=== PATIENT | male | born 1995 | race Caucasian/White ===

== ENCOUNTER 2021-10-07 17:39 | Emergency (ER) | payer OTHER ==
[2021-10-07 18:38] LABS: BASOPHIL 0.3 % (0-2); EOSINOPHIL 0.4 % (0-5); HCT 50.5 % (42.0-52.0); HGB 17.6 g/dl (13.2-18.0); LYMPHOCYTE 1.9 % (15-48); MCH 31.6 pg (25.0-31.0); MCHC 34.9 g/dL (32.0-36.0); MCV 90.7 fL (78.0-100.0); MONOCYTE 4.1 % (0-12); MPV 9.8 fL (6.0-9.5); NRBC 0; PLT 242 K/uL (150-400); RBC 5.57 M/uL (4.70-6.00); RDW 12.7 % (11.5-14.0)
[2021-10-07 18:39] LABS: BILIRUBIN 1+ mg/dL (NEGATIVE); BLOOD NEGATIVE Ery/uL (NEGATIVE); CLARITY CLEAR (CLEAR); COLOR YELLOW (YELLOW); GLUCOSE (U) NORMAL (NORMAL); LEUKOCYTES TRACE Leu/uL (NEGATIVE); NITRITE NEGATIVE (NEGATIVE); PROTEIN TRACE (LOW) mg/dL (NEGATIVE); SPECIFIC GRAVITY 1.015 (1.001-1.030); UROBILINOGEN 0.2 mg/dL (0.2-1.0)
[2021-10-07 18:42] LABS: NEUTROPHIL 92.8 % (41-80)
[2021-10-07 18:47] LABS: AMORPHOUS URATES CRYSTALS TRACE; MUCOUS LARGE; SQUAMOUS EPITHELIAL CELLS RARE; URINARY WBC RARE
[2021-10-07 18:55] LABS: ALBUMIN 5.5 g/dL (3.4-5.0); BILIRUBIN - TOTAL 1.5 mg/dL (0.2-1.0); BUN/CREAT RATIO (CALC) 22.4 RATIO; CREATININE 0.85 mg/dL (0.67-1.17); GLOBULIN (CALCULATION) 3.4 g/dL; POTASSIUM 4.4 mmol/L (3.5-5.1); TOTAL PROTEIN 8.9 g/dL (6.4-8.2)
[2021-10-07] MEDS ORDERED: ONDANSETRON ODT4 MG PO (21:03)
[2021-10-07] MEDS ORDERED: BENTYL10 MG PO (21:03)
== END 2021-10-07 21:25 | disposition home or self-care (01) ==
LOC: FER 17:39
PROVIDERS: Physician Assistant
DX: R10.84 Generalized abdominal pain (principal); R11.2 Nausea with vomiting, unspecified; K58.0 Irritable bowel syndrome with diarrhea; J45.909 Unspecified asthma, uncomplicated
CPT/HCPCS: 36415; 80053; 81001; 83690; 85025; 96372; J0500; J2405; J7030; Q9967